=== PATIENT | female | born 1930 | race Caucasian/White ===

== ENCOUNTER 2016-04-17 16:51 | Inpatient (IN) | payer MEDICARE, MEDICAID ==
--- NOTE | 2016-04-17 17:30 | ED Physician Chart ---
Chief Complaint/HPI - Patient Information Date Seen:: 04/17/16 Time Seen:: 17:15 Chief Complaint:: increasing confusion History of Present Illness:: has had increasing confusion for the last 4 years. Has had mild cough for the last one week. No fever, chills, vomiting, diarrhea. Allergies:: Allergies Allergy/AdvReac Type Severity Reaction Status Date / Time No Known Allergies Allergy Verified 04/17/16 17:06 Vitals:: Vital Signs - 8 hr 04/17/16 17:07 Temp 98.2 F HR 87 RR 16 BP 130/74 O2 Sat % 98 Historian:: Family Member Review:: Nurse's Note Reviewed Review of Systems - Review of Systems General/Constitutional: No fever, No chills Skin: No skin lesions Head: No headache Eyes: No loss of vision ENT: No earache Neck: No neck pain Cardio Vascular: No chest pain, No palpitations Pulmonary: No SOB GI: No nausea, No vomiting G/U: No dysuria, No frequency Musculoskeletal: No bone or joint pain Endocrine: No polyuria Psychiatric: Other (dementia) Hematopoietic: No bruising Allergic/Immuno: No urticaria Neurological: No syncope Past Medical History - Past Medical History Past Medical History: Dementia Family History: Other (son has tremors and PUD) Social History: Non Smoker, No Alcohol Surgical History: None Psychiatricy History: Dementia Medication: Reviewed Labs/Radiology/EKG Results - Lab Results Results: Laboratory Results - last 24 hr 04/17/16 04/17/16 17:33 17:33 WBC 9.9 RBC 4.28 Hgb 12.2 Hct 37.2 MCV 86.9 MCH 28.5 MCHC Differential 32.8 RDW 12.2 Plt Count 356 MPV 7.8 Neutrophils % 78.7 Lymphocytes % 13.9 L Monocytes % 5.6 Eosinophils % 1.0 Basophils % 0.8 Sodium 138 Potassium 4.2 Chloride 104 Carbon Dioxide 25.3 Anion Gap 12.9 BUN 50 H Creatinine 1.3 H Est GFR ( Amer) TNP Est GFR (Non-Af Amer) TNP BUN/Creatinine Ratio 38.5 Glucose 108 H Calcium 9.3 - Radiology Results Results: CXR: calcification of aortic arch; otherwise normal; CT head: atrophy and left maxillary sinusitis - EKG Interpretations Rhythm: NSR [place]: normal Rate: 72 ED Septic Shock - . Is Septic Shock (SBP<90, OR Lactate>4 mmol\L) present?: No - <6hrs of presentation: Vital Signs: Vital Signs - 8 hr 04/17/16 17:07 Temp 98.2 F HR 87 RR 16 BP 130/74 O2 Sat % 98 Reassessment (Disposition) - Reassessment Reassessment Condition:: Unchanged - Diagnosis Diagnosis:: dementia; left maxillary sinusitis - Patient Disposition Admitted to:: [facility] Spoke to:: Juan Moctezuma Admitting Medical Physician:: Juan Moctezuma Admitting Psych Physician:: Wesley Brand ED Discharge Plan - Patient Disposition Instructions: Psychosis
[2016-04-17 17:46] LABS: % BASOPHILS 0.8 % (0.0-2.0); % LYMPHOCYTES 13.9 % (20.0-50.0); % MONOCYTES 5.6 % (2.0-10.0); % NEUTROPHILS 78.7 % (40.0-80.0); HEMATOCRIT 37.2 % (35.0-45.0); HEMOGLOBIN 12.2 gm/dL (11.7-16.1); MEAN CELL VOLUME 86.9 fl (81-100); MEAN CORPUSCULAR HEMOGLOBIN 28.5 pg (27.0-31.0); MEAN CORPUSCULAR HGB CONC 32.8 pg (28.0-36.0); MEAN PLATELET VOLUME 7.8 fl; NEUTROPHILE ABSOLUTE 7.7 Th/cmm (1.8-8.0); PLATELET COUNT 356 Th/cmm (150-400); RED BLOOD COUNT 4.28 Mil/cmm (3.80-5.20); RED CELL DISTRIBUTION WIDTH 12.2 % (11.5-20.0); WHITE BLOOD COUNT 9.9 Th/cmm (4.8-10.8)
[2016-04-17 18:00] LABS: ANION GAP 12.9 (7.0-16.0); BUN - UREA NITROGEN 50 mg/dL (7-25); BUN/CREATININE RATIO 38.5; CALCIUM SERUM 9.3 mg/dL (8.6-10.3); CARBON DIOXIDE 25.3 mEq/L (21.0-31.0); CHLORIDE 104 mEq/L (98-107); CREATININE - SERUM 1.3 mg/dL (0.6-1.2); GLUCOSE 108 mg/dL (70-105); POTASSIUM SERUM 4.2 mEq/L (3.5-5.1); SODIUM SERUM 138 mEq/L (136-145)
[2016-04-17 19:49] LABS: % BASOPHILS 0.4 % (0.0-2.0); % EOSINOPHILS 1.4 % (0.0-5.0); % LYMPHOCYTES 18.6 % (20.0-50.0); % MONOCYTES 6.8 % (2.0-10.0); % NEUTROPHILS 72.8 % (40.0-80.0); HEMATOCRIT 35.7 % (35.0-45.0); MEAN CELL VOLUME 87.7 fl (81-100); MEAN CORPUSCULAR HEMOGLOBIN 29.6 pg (27.0-31.0); MEAN CORPUSCULAR HGB CONC 33.8 pg (28.0-36.0); MEAN PLATELET VOLUME 7.7 fl; NEUTROPHILE ABSOLUTE 7.3 Th/cmm (1.8-8.0); PLATELET COUNT 338 Th/cmm (150-400); RED BLOOD COUNT 4.07 Mil/cmm (3.80-5.20); RED CELL DISTRIBUTION WIDTH 11.9 % (11.5-20.0)
[2016-04-17 19:59] VITALS: BP 135/56
[2016-04-17] MEDS ORDERED: Maalox 30 mL Cup PO PRN (19:59)
[2016-04-17] MEDS ORDERED: Magnesium Hydroxide (MOM) 30 mL UDC PO PRN (19:59)
[2016-04-17 20:01] LABS: ANION GAP 8.4 (7.0-16.0); BUN - UREA NITROGEN 53 mg/dL (7-25); BUN/CREATININE RATIO 40.8; CALCIUM SERUM 9.5 mg/dL (8.6-10.3); CARBON DIOXIDE 26.5 mEq/L (21.0-31.0); CHLORIDE 106 mEq/L (98-107); CHOLESTEROL 170 mg/dL (<200); CREATININE - SERUM 1.3 mg/dL (0.6-1.2); GLUCOSE 101 mg/dL (70-105); POTASSIUM SERUM 4.9 mEq/L (3.5-5.1); SODIUM SERUM 136 mEq/L (136-145); TRIGLYCERIDES 90 mg/dL (<150)
[2016-04-17] MEDS ORDERED: Sodium Chloride 0.9% 1,000 ML IV SCH (21:15)
[2016-04-18] MEDS: Multivitamin Tab PO SCH (10:04)
--- NOTE | 2016-04-18 11:22 | Diagnostic Imaging Report ---
CT scan of the brain without intravenous contrast HISTORY: Dementia Total DLP equals 576 CTDI equals 31.0 Axial sections were obtained from the base of the skull to the vertex. The exam demonstrates marked enlargement of the ventricular system along with marked enlargement of cerebral sulci and subarachnoid cisterns reflecting severe generalized cerebral atrophy. Extensive hypodensity seen throughout the supratentorial white matter regions without mass effect. The findings may be associated with chronic small vessel ischemic disease. Bilateral basal ganglia calcification is noted. No acute focal abnormalities. No intracerebral hemorrhage. Again, no mass effect or shift of midline structures. No extra-axial masses or abnormal fluid collections. Mucosal thickening noted about the maxillary sinuses bilaterally. IMPRESSION: 1. No acute abnormalities 2. Relatively severe generalized cerebral atrophy 3. Extensive supratentorial white matter changes that may be associated with chronic small vessel ischemic disease 4. Mucosal thickening about the maxillary sinuses
--- NOTE | 2016-04-18 11:29 | Diagnostic Imaging Report ---
Portable chest x-ray History: Cough Allowing for portable technique the heart size is normal. No focal pulmonary parenchymal processes. No hilar or mediastinal abnormalities. Impression: No acute abnormalities.
[2016-04-18 12:16] LABS: HEP B CORE IGM Negative (Negative); HEP C ANTIBODY <0.1 s/co ratio (0.0-0.9)
--- NOTE | 2016-04-18 22:02 | Psychosocial Evaluation ---
CHIEF COMPLAINT: Agitation and aggressive behavior. HISTORY OF PRESENT ILLNESS: The patient is an 86-year-old female who has been under my care for treatment of dementia and psychosis. The patient was transferred to the hospital from [facility] because of increased agitation and irritability. The patient has been aggressive and angry in the usp and she has not been able to follow staff directions. The patient also has been suspicious and increasingly irritable. The patient also has been aggressive with the staff during helping her with her ADLs. The patient also has not been eating much and person hygiene much deteriorated and the patient has been more confused. PAST PSYCHIATRIC HISTORY: The patient has history of psychosis. PAST MEDICAL HISTORY: The patient has no major medical problems and the patient was cleared medically in the Emergency Room and she only has mild cough. SOCIAL HISTORY: The patient lives in [facility]. No known alcohol or drug use. ALLERGIES: No known allergies. MENTAL STATUS EXAMINATION: The patient appears her stated age. Anxious. Cooperative. Sad affect. Irritable mood. Thought processes are with poverty of speech. The patient did not answer questions regarding hallucinations or delusions, but actively responding to stimuli and staring around the room. The patient did not answer questions regarding suicide or homicide. The patient is alert, but seems to be confused and disoriented to time, place, person and situation. Impaired immediate, recent and remote memories and the patient was not able even to remember her date. Poor insight. Poor judgment. ASSESSMENT: PRIMARY DIAGNOSIS: Unspecified psychosis. SECONDARY DIAGNOSIS: Dementia, [id number], with psychotic features. TREATMENT PLAN: We will adjust the patient's Seroquel. We will monitor psychotropic medications. We will add Aricept in a dose of 5 mg at bedtime. We will work on her confusion and agitation and we will continue to follow up. ESTIMATED LENGTH OF STAY: 7-10 days. THE PATIENT'S STRENGTHS AND WEAKNESSES: The patient strength is not clear at this time except that she seems to be in relatively fair health. Weaknesses are her ineffective coping and poor coping skills. AFTER DISCHARGE PLAN: Outpatient treatment and followup will continue as an outpatient. The patient also will return to [facility]. CRITERIA FOR DISCHARGE: The patient will not be agitated or psychotic and will stabilize psychotropic medications and will establish outpatient treatment plans. JOB# [id number]
--- NOTE | 2016-04-19 00:02 | History & Physical ---
REASON FOR ADMISSION: Psychiatric disorder. HISTORY OF PRESENT ILLNESS: This is an 86-year-old female who was admitted to [facility] for evaluation of underlying confusion and psychiatric disorders by Dr. Brand. Dr. Brand requested medical H and P on this patient. At the time of evaluation, the patient seems very confused, unable to provide any meaningful history. Per nursing staff, no current medical concern was reported. PAST MEDICAL HISTORY: Alzheimer dementia. PAST SURGICAL HISTORY: No pertinent past surgical history. FAMILY HISTORY: Noncontributory. SOCIAL HISTORY: Lives at home with family. No reported alcohol, tobacco or street drug use. CURRENT MEDICATIONS: Tylenol, Maalox, Aricept, Ativan, vitamin C, multivitamin, Seroquel and Ambien. ALLERGIES: No known drug allergy reported. REVIEW OF SYSTEMS: Difficult to obtain and elaborate due to the patient's underlying severe confusion. PHYSICAL EXAMINATION: VITAL SIGNS: Temperature 97.4, pulse 85, respirations 18, blood pressure 153/78, oxygen saturation 97% room air. GENERAL APPEARANCE: The patient does not seem in distress. CARDIOVASCULAR: S1, S2 normal. LUNGS: CTA bilaterally. ABDOMEN: Soft, nontender, nondistended. NEUROLOGIC: The patient is awake, but confused. Moves all extremities. No focal deficits. EXTREMITIES: No edema. AVAILABLE LABORATORY DATA: WBC is 10.0, hemoglobin 12.0, hematocrit 35.7, platelets count is 338. Sodium 133, potassium 4.9, BUN 53, creatinine 1.3, glucose 101, calcium 9.5, ____ 170, LDL 91, HDL ____, triglyceride 2.09. Hepatitis panel negative. Head CT, no acute abnormalities, there is severe generalized cerebral atrophy noted. Chest x-ray, no acute abnormality noted. ASSESSMENT: 1. Confusion. 2. Alzheimer dementia. 3. Psychiatric disorder. 4. Acute renal insufficiency. 5. Hypertension. 6. Generalized debility. PLAN: Psych evaluation and management per psychiatrist. The patient will be encouraged to drink more oral liquids. Blood pressure will be monitored. Fall precautions and aspiration precautions will be given. The patient's condition and plan of care discussed with nursing staff. Thank you, Dr. Brand, for allowing me to participate in the care of this patient. [facility]# [id number]
[2016-04-19] MEDS: Multivitamin Tab PO SCH (09:41)
--- NOTE | 2016-04-20 01:22 | Progress Notes ---
SUBJECTIVE: Chart reviewed and the patient interviewed. Also discussed the patient's condition with the staff and reviewed records and labs. The patient continued to be confused and she is still in irritable mood. The patient was walking around, rambling in Yoruba language and having a bag around her neck thinking that it is the picture of her son. The patient also seems to be preoccupied and she is confused and disoriented. According to the staff that was helping me with the translation, the patient seems to be extremely delusional and she is not knowing what she was talking about and at times she is talking about her father, but not in a clear way what she is exactly talking about. ASSESSMENT: The patient is still psychotic and confused and she still needs close monitoring. TREATMENT PLAN: We will continue to monitor her behavior and her condition closely. Also, we will increase Seroquel to 12.5 mg in the morning and 150 mg at bedtime. Also, continue to work on her irritability and her agitation and we will continue to follow up. JOB# [id number]
[2016-04-20] MEDS: Multivitamin Tab PO SCH (12:52)
--- NOTE | 2016-04-21 06:22 | Progress Notes ---
SUBJECTIVE: Chart reviewed and the patient interviewed. Also discussed the patient's condition with the staff and reviewed records and labs. The patient continues pacing around the unit in a confused state and she still seems to be preoccupied and talking to herself. The patient also is still rambling and staff could not understand what she is stating, although some of the staff speaks Nepali, but still did not understand what she is talking about. The patient also is still easily agitated and easily irritable. She also gets aggressive with the staff when they try to redirect her. She seems to be confused and disoriented and preoccupied. Also during interview, the patient is disheveled and rambling and restless and could not stand still and always pacing and on the move. ASSESSMENT: The patient is still psychotic and aggressive and can be dangerous to others. TREATMENT PLAN: Although I increased Seroquel yesterday, yet the patient is refusing to take medications for no apparent reason. We will continue to convince the patient to take her medications and work on her compliance with taking the medications. Also, we will continue to work on her anger and irritability and poor impulse control. JOB# [id number]
[2016-04-21] MEDS: Multivitamin Tab PO SCH (09:53)
[2016-04-22] MEDS: Multivitamin Tab PO SCH (09:43)
--- NOTE | 2016-04-23 02:55 | Progress Notes ---
SUBJECTIVE: Chart reviewed and the patient interviewed. Also discussed the patient's condition with the staff and reviewed records and labs. The patient is still forgetful and is still anxious and in irritable mood. The patient also is still suspicious and is still paranoid. She also is still in angry mood with severe mood swings. The patient is also walking around, mumbling in Czech words, difficult to understand and seems to be preoccupied. Otherwise, the patient is more cooperative with treatment, but she still has periods of anger. ASSESSMENT: The patient is still psychotic. TREATMENT PLAN: We will continue monitoring her behavior and her condition closely. Also, continue to work on her adjusting psychotropic medications and followup. JOB# [id number]
--- NOTE | 2016-04-23 04:13 | Progress Notes ---
SUBJECTIVE: Chart reviewed and the patient interviewed. Also discussed the patient's condition with the staff and reviewed records and labs. The patient is still confused and is still wandering around the unit aimlessly, mumbling and rambling in [place] language. She also still needs lots of redirections. The patient also still has episodes of irritability and agitation especially when staff tries to redirect her. The patient also is trying to get out of the door of the unit and had episodes of pounding with her fist on the door. Otherwise, the patient is compliant with taking her medications with no side effects of medications. ASSESSMENT: The patient is still psychotic. TREATMENT PLAN: We will continue monitoring her behavior and her condition closely. Also, continue to adjust the dose of Seroquel. Also, working on behavioral modifications. JOB# [id number]
[2016-04-23] MEDS: Multivitamin Tab PO SCH (08:06)
--- NOTE | 2016-04-23 23:33 | Progress Notes ---
SUBJECTIVE: Chart reviewed and the patient interviewed. Also discussed the patient's condition with the staff and reviewed records and labs. The patient is still confused and she is still in angry and in irritable mood. The patient also is still rambling and her thought processes are circumstantial and tangential with flight of ideas. According to staff, she speaks Croatian. The patient also is still mumbling. Also, personal hygiene is still poor. The patient also seems to be confused and wandering around the unit and entering other patients' rooms in a confused state and gets agitated when staff tries redirect her. ASSESSMENT: The patient is still confused and is paranoid. TREATMENT PLAN: We will monitor her behavior and her condition closely. Also, we will increase Seroquel to 25 mg in the morning and 150 mg at bedtime and we will continue to monitor her behavior and her condition closely because of her agitation and irritability. Also, working with piano case maker in regard to discharge plans and placement issues. JOB# [id number]
[2016-04-24] MEDS: Multivitamin Tab PO SCH ×2 (08:51→08:57)
--- NOTE | 2016-04-25 01:02 | Progress Notes ---
SUBJECTIVE: Chart reviewed and the patient interviewed. Also, discussed the patient's condition with the staff and reviewed records and labs. The patient is still confused as is still rambling in the Venezuelan language while pacing up and down the unit. The patient also still needs redirection and she gets angry and agitated when staff tries to redirect her. She also is still talking to herself and mumbling in Venezuelan with difficulty to understand. The patient gets aggressive with the staff. Also, personal hygiene is still poor. ASSESSMENT: The patient is still psychotic. TREATMENT PLAN: We will continue monitoring her behavior and her condition closely. Also, continue to monitor psychotropic medications and working on placement issue and discharge plans. JOB# [id number]
[2016-04-25] MEDS: Multivitamin Tab PO SCH (08:33)
--- NOTE | 2016-04-26 01:44 | Progress Notes ---
SUBJECTIVE: Chart was reviewed, and the patient interviewed. Also, discussed the patient's condition with the staff and reviewed records and labs. The patient is still suspicious and is still paranoid. The patient also is still confused, and she is still wandering around the unit in a confused state. The patient also is still mumbling in Sami language in words that are difficult to understand even for staff who speaks Sami. The patient also is still agitated and she is still confused. Also, personal hygiene is still poor. During interview, the patient is disheveled and she is preoccupied. She also is paranoid and she is having difficulty following any of my directions. ASSESSMENT: The patient is still psychotic. TREATMENT PLAN: We will continue monitoring her condition and her medications closely. Also, the patient has been refusing to take medications, and we will change medicine to Zyprexa Zydis. Hopefully, the patient will be more compliant with taking medications. Also, we will work on her irritability and her anger. No new labs available for review. JOB# [id number]
[2016-04-26] MEDS: Multivitamin Tab PO SCH (09:27)
--- NOTE | 2016-04-27 05:19 | Progress Notes ---
Covering for Dr. Brand. Case was discussed with staff of the patient, reviewed records. This is an 86-year-old female who was admitted on 04/17/2016. The patient has a history of dementia and psychosis. Has been treated by Dr. Brand, transferred from [facility] because of increased agitation, irritability, aggressive and angry in the longterm, unable to follow staff direction, suspicious and irritable. The patient continues to have poor insight. Continues to be irritable, continues to be easily agitated. Unable to make safe plan for self-care. She is compliant with the medication with no side effects. She is on Zyprexa 5 mg twice a day, Aricept 5 mg at bedtime. No side effects with the medication, no sedation, no nausea and we will continue to work with the patient in group therapy, milieu therapy and adjust medication as needed. JOB# [id number]
[2016-04-27] MEDS: Multivitamin Tab PO SCH (09:45)
--- NOTE | 2016-04-28 04:40 | Progress Notes ---
Case discussed with staff of the patient and reviewed records. Covering for Dr. Brand. The patient is reported to be somewhat sedated today, staying in bed; however, she continues to be paranoid, suspicious, sometimes wandering around the unit in a confused state. Continues to mumble to herself in Indonesian. Continues to be unpredictable and impulsive, looking disheveled. She is compliant with the medication with no side effects, no sedation, no nausea, no extrapyramidal symptoms. She is on Zyprexa 5 mg twice a day and will continue with patient in group therapy, milieu therapy, adjust the medication as needed. JOB# [id number]
[2016-04-28] MEDS: Multivitamin Tab PO SCH (10:03)
[2016-04-28] MEDS: OLANZapine 5 mg Oral Disintegrating Tab PO SCH ×2 (17:04→19:47)
--- NOTE | 2016-04-29 03:05 | Progress Notes ---
Case was discussed with staff of the patient, reviewed records. The patient has been isolating herself in bed. Continues to be unpredictable, impulsive, needing redirection. Continues to have poor insight. Unable to make safe plan for her self-care. Continues to be paranoid, suspicious at times, mumbling to herself. She has been on the Zyprexa 5 mg twice a day with no side effects, no sedation, no nausea, no extrapyramidal symptoms. We will continue to work with the patient in group therapy, milieu therapy, adjust the medication as needed. JOB# [id number]
--- NOTE | 2016-04-30 01:23 | Progress Notes ---
Covering for Dr. Brand. Case discussed with staff of the patient. The patient is reported____ by the staff to be staying in bed most of the time and that in the past 2 days, she did not take her medications; I was only told about it today, so the patient was encouraged to take her medication. The patient would not give me any reason why she is not taking her medication. She is demented, confused. I would be increasing her Aricept to 10 mg at bedtime and the patient does not tell me any reason why she would not take her medication, she kept quiet and I listed all the side effects of the medication she takes. She has very poor insight, unpredictable, impulsive and we will continue to work with the patient in group therapy, milieu therapy, adjust medication as needed. JOB# [id number]
[2016-04-30] MEDS: OLANZapine 5 mg Oral Disintegrating Tab PO SCH ×2 (13:18→18:09)
[2016-04-30] MEDS: Multivitamin Tab PO SCH (13:18)
--- NOTE | 2016-05-01 02:21 | Progress Notes ---
SUBJECTIVE: The patient was seen, chart reviewed, discussed with staff. The patient is not interactive with me on interview, not talking, noted by staff to initially be pacing a lot, but _at times___ refusing medications. Sleeping most of the time. Okay p.o. intake. The patient is not at all interactive with me. The patient is with a history of dementia. The patient was seen by Dr. Hoang over the past few days, originally brought into the hospital, increased agitation, irritability, aggressive behaviors, unable to be cared for at a lower level of care. Unable to utilize basic food, clothing and correction due to the severity of her symptoms and dementia. ASSESSMENT: As noted, the patient remains confused, refusing medications, not talking, severely withdrawn, unable to care for basic needs. PLAN: Continue to monitor. Continue to encourage medication compliance. The patient may need a __riese__ petition. JOB# [id number]
[2016-05-01] MEDS: OLANZapine 5 mg Oral Disintegrating Tab PO SCH ×2 (09:56→17:54)
[2016-05-01] MEDS: Multivitamin Tab PO SCH (09:56)
[2016-05-02] MEDS: OLANZapine 5 mg Oral Disintegrating Tab PO SCH ×3 (08:44→18:01)
[2016-05-02] MEDS: Multivitamin Tab PO SCH (08:45)
--- NOTE | 2016-05-02 08:49 | Progress Notes ---
SUBJECTIVE: Chart was reviewed and the patient interviewed. Also, discussed the patient's condition with the staff and reviewed records and labs. The patient is still depressed and confused. The patient also has been staying in her room most of the time and has minimal interaction with others. The patient also has been not answering questions and it seems that her appetite decreased than before. The patient also is still suspicious and still paranoid and uncooperative with her treatment. She is still rambling in Kinyarwanda language, difficulty understanding her what she is talking about. ASSESSMENT: The patient is still psychotic. TREATMENT PLAN: We will continue monitoring her behavior and her condition closely. Also, we will continue to work on her irritability and her agitation. Also, encouraged the patient to interact. Also, we will work on her agitation and irritability. Also, we will decrease Zyprexa to 2.5 mg every day. Hopefully, that might help with the patient to be more energetic. JOB# [id number]
--- NOTE | 2016-05-02 19:16 | Discharge Summary ---
AGE: 86 SEX: Female. PHYSICIAN: Dr. Brand FINAL DIAGNOSES/PRIMARY DIAGNOSIS: Unspecified psychosis. REASON FOR HOSPITALIZATION: The patient was admitted to the hospital because of agitation and irritability. HOSPITAL COURSE: The patient continued to be anxious and in irritable mood. The patient also was easily agitated. The patient continued wandering around the unit in a confused state. She also was easily agitated, especially when staff tried to redirect her and help her with her ADLs. The patient was given Zyprexa and the dose adjusted to 2.5 mg twice a day. Gradually, the patient's affect was brighter. The patient was less agitated and less irritable. It was easier to redirect her. The patient was returned back to [facility]. Physical exam of the patient showed no major medical problems. AFTER DISCHARGE PLANS: The patient discharged from the hospital and returned to [facility] convalescent with plans for outpatient treatment and follow up there. LABORATORY DATA: No major abnormal labs while in the hospital. EXPECTED OUTCOME AFTER DISCHARGE: Fair, if the patient continues to take her psychotropic medications and follow up with treatment plans. JOB# [id number]
== END 2016-05-02 18:00 | DRG 885 ==
LOC: ER 16:51 → GERO 19:46
PROVIDERS: ADMIT Psychiatry & Neurology Psychiatry; ATTEND Psychiatry & Neurology Psychiatry
DX: F29 Unspecified psychosis not due to a substance or known physiological condition (principal); F02.80 Dementia in other diseases classified elsewhere, unspecified severity, without behavioral disturbance, psychotic disturbance, mood disturbance, and anxiety; G30.9 Alzheimer's disease, unspecified; J32.0 Chronic maxillary sinusitis; I10 Essential (primary) hypertension; N28.9 Disorder of kidney and ureter, unspecified; R53.81 Other malaise; Z87.11 Personal history of peptic ulcer disease
CPT/HCPCS: 36415-UA; 70450-TC; 71010-TC; 80048-TC; 80061-TC; 80074-90; 84443-TC; 85025-TC; 86592-TC; 93005; Z7610

== ENCOUNTER 2016-05-26 22:10 | Emergency (ER) | payer MEDICARE, MEDICAID ==
--- NOTE | 2016-05-26 22:15 | ED Physician Chart ---
Chief Complaint/HPI - Patient Information Date Seen:: 05/26/16 Time Seen:: 22:15 Chief Complaint:: agitation History of Present Illness:: 86-year-old female with underlying dementia and psychosis, brought in by paramedics with acute, worsening, moderate to severe, agitation started this morning. Has associated uncooperative behavior. History limited as patient has underlying dementia and cannot provide a reliable history and has uncooperative behavior History provided by EMS and EMS run sheet Allergies:: Allergies Allergy/AdvReac Type Severity Reaction Status Date / Time No Known Allergies Allergy Verified 04/17/16 17:06 Historian:: EMS Review:: Nurse's Note Reviewed, EMS run form Reviewed, Transfer documents Reviewed Review of Systems - Review of Systems Other: Complete system review otherwise unremarkable except as noted in HPI. Past Medical History - Past Medical History Past Medical History: HTN, Other (chronic kidney disease, hypertension) Family History: None Social History: Non Smoker, No Alcohol, No Drug Use, Care Facility Surgical History: None Psychiatricy History: Dementia, Other (psychosis) Medication: Reviewed Family Medical History - Family Member Mother History Unknown: Yes Maternal History Unknown: Yes Physical Exam - Physical Examination Other:: INITIAL VITAL SIGNS: Reviewed by me GENERAL: Alert and interactive but demented but cooperative. No acute distress HEAD: Head is normocephalic and atraumatic EYES: EOMI. . No scleral icterus. No conjunctival injection ENT: Moist mucous membranes. NECK: Supple. No masses. Full range of motion RESPIRATORY: No tachypnea. Clear breath sounds bilaterally. No wheezing, rales, or rhonchi CV: Regular rate and rhythm. No murmurs, rubs, or gallops ABDOMEN: Soft, non-distended, non-tender. No guarding. No rebound. No masses. EXTREMITIES: No deformity. No cyanosis. No edema. SKIN: Warm and dry. No obvious rashes. NEUROLOGIC: Alert and oriented. Face is symmetric. Speech is normal. Moves all extremities equally. Motor and sensory distally intact. Labs/Radiology/EKG Results - Lab Results Results: Lab Results 05/26/16 05/26/16 05/26/16 Range/Units 22:25 22:25 22:25 WBC 8.8 (4.8-10.8) Th/cmm RBC 3.80 (3.80-5.20) Mil/cmm Hgb 11.1 L (11.7-16.1) gm/dL Hct 33.0 L (35.0-45.0) % MCV 86.8 (81-100) fl MCH 29.2 (27.0-31.0) pg MCHC Differential 33.6 (28.0-36.0) pg RDW 14.2 (11.5-20.0) % Plt Count 242 D (150-400) Th/cmm MPV 8.3 fl Neutrophils % 75.4 (40.0-80.0) % Lymphocytes % 18.1 L (20.0-50.0) % Monocytes % 5.2 (2.0-10.0) % Eosinophils % 0.7 (0.0-5.0) % Basophils % 0.6 (0.0-2.0) % Sodium 138 (136-145) mEq/L Potassium 4.6 (3.5-5.1) mEq/L Chloride 106 (98-107) mEq/L Carbon Dioxide 23.9 (21.0-31.0) mEq/L Anion Gap 12.7 (7.0-16.0) BUN 39 H (7-25) mg/dL Creatinine 1.3 H (0.6-1.2) mg/dL Est GFR ( Amer) TNP Est GFR (Non-Af Amer) TNP BUN/Creatinine Ratio 30.0 Glucose 105 (70-105) mg/dL Calcium 8.8 (8.6-10.3) mg/dL Total Bilirubin 0.3 (0.3-1.0) mg/dL AST 13 (13-39) U/L ALT 9 (7-52) U/L Alkaline Phosphatase 75 (34-104) U/L Total Protein 6.5 (6.0-8.3) gm/dL Albumin 3.6 L (3.7-5.3) gm/dL Globulin 2.9 gm/dL Albumin/Globulin Ratio 1.2 (1.0-1.8) Lipase 61 (11-82) U/L TSH 2.42 (0.34-5.60) uIU/ml Urine Source Urine Color Urine Clarity (CLEAR) Urine pH Ur Specific [place] (1.005-1.030) Urine Protein (NEGATIVE) mg/dL Urine Glucose (UA) (NEGATIVE) mg/dL Urine Ketones (NEGATIVE) mg/dL Urine Blood (NEGATIVE) Urine Nitrate (NEGATIVE) Urine Bilirubin (NEGATIVE) Urine Urobilinogen (0.2 - 1.0) E.U./dL Ur Leukocyte Esterase (NEGATIVE) Urine RBC (0-5) /hpf Urine WBC (0-5) /hpf Ur Epithelial Cells (FEW) /lpf Urine Bacteria (NONE SEEN) /hpf Urine Opiates Screen (NEGATIVE) Ur Barbiturates Screen (NEGATIVE) Ur Phencyclidine Scrn (NEGATIVE) Amphetamines Screen (NEGATIVE) U Methamphetamines Scrn (NEGATIVE) U Benzodiazepines Scrn (NEGATIVE) U Cocaine Metab Screen (NEGATIVE) U Cannabinoids Screen (NEGATIVE) Ethyl Alcohol < 10 (0-10) mg/dL 05/26/16 05/26/16 Range/Units 23:50 23:50 WBC (4.8-10.8) Th/cmm RBC (3.80-5.20) Mil/cmm Hgb (11.7-16.1) gm/dL Hct (35.0-45.0) % MCV (81-100) fl MCH (27.0-31.0) pg MCHC Differential (28.0-36.0) pg RDW (11.5-20.0) % Plt Count (150-400) Th/cmm MPV fl Neutrophils % (40.0-80.0) % Lymphocytes % (20.0-50.0) % Monocytes % (2.0-10.0) % Eosinophils % (0.0-5.0) % Basophils % (0.0-2.0) % Sodium (136-145) mEq/L Potassium (3.5-5.1) mEq/L Chloride (98-107) mEq/L Carbon Dioxide (21.0-31.0) mEq/L Anion Gap (7.0-16.0) BUN (7-25) mg/dL Creatinine (0.6-1.2) mg/dL Est GFR ( Amer) Est GFR (Non-Af Amer) BUN/Creatinine Ratio Glucose (70-105) mg/dL Calcium (8.6-10.3) mg/dL Total Bilirubin (0.3-1.0) mg/dL AST (13-39) U/L ALT (7-52) U/L Alkaline Phosphatase (34-104) U/L Total Protein (6.0-8.3) gm/dL Albumin (3.7-5.3) gm/dL Globulin gm/dL Albumin/Globulin Ratio (1.0-1.8) Lipase (11-82) U/L TSH (0.34-5.60) uIU/ml Urine Source CATH Urine Color YELLOW Urine Clarity CLEAR (CLEAR) Urine pH 7.0 Ur Specific [place] 1.015 (1.005-1.030) Urine Protein NEGATIVE (NEGATIVE) mg/dL Urine Glucose (UA) NEGATIVE (NEGATIVE) mg/dL Urine Ketones NEGATIVE (NEGATIVE) mg/dL Urine Blood NEGATIVE (NEGATIVE) Urine Nitrate NEGATIVE (NEGATIVE) Urine Bilirubin NEGATIVE (NEGATIVE) Urine Urobilinogen 0.2 (0.2 - 1.0) E.U./dL Ur Leukocyte Esterase NEGATIVE (NEGATIVE) Urine RBC 0-2 (0-5) /hpf Urine WBC 0-2 (0-5) /hpf Ur Epithelial Cells OCCASIONAL (FEW) /lpf Urine Bacteria OCCASIONAL (NONE SEEN) /hpf Urine Opiates Screen NEGATIVE (NEGATIVE) Ur Barbiturates Screen NEGATIVE (NEGATIVE) Ur Phencyclidine Scrn NEGATIVE (NEGATIVE) Amphetamines Screen NEGATIVE (NEGATIVE) U Methamphetamines Scrn NEGATIVE (NEGATIVE) U Benzodiazepines Scrn POSITIVE H (NEGATIVE) U Cocaine Metab Screen NEGATIVE (NEGATIVE) U Cannabinoids Screen NEGATIVE (NEGATIVE) Ethyl Alcohol (0-10) mg/dL ED Septic Shock - . Is Septic Shock (SBP<90, OR Lactate>4 mmol\L) present?: No Reassessment (Disposition) - Reassessment Reassessment:: Patient was somewhat agitated on arrival. We're unable to get vital signs and blood work. She did receive 2 mg of intramuscular Ativan. She became much more relaxed but remained alert and oriented. Patient is medically cleared. There is no apparent infective source or any other acute lab abnormalities. Patient does have underlying hypertension and CK D. Consequently her creatinine is elevated at 1.3. I discussed all of the findings with the patient's primary care physician Dr. Moctezuma who would like us to send the patient back to her care facility. Reassessment Condition:: Improved - Diagnosis Diagnosis:: Medical screening examination Hypertension Dementia Agitation - Aftercare/Follow up Instructions Aftercare/Follow-Up Instructions:: Counseled pt regarding lab results/diagnosis & need follow up, Refer to Discharge Instructions - Patient Disposition Discharge/Transfer:: Home Discussion with Medical Provider:: Spoke to Dr. Moctezuma, disposition back to nursing home facility. Per Dr. Moctezuma Spoke to:: Juan Moctezuma Time:: 00:50 ED Discharge Plan - Patient Disposition Instructions: Dementia, [id number] Additional Instructions: follow up with primary medical doctor PATSY
[2016-05-26 22:33] LABS: % BASOPHILS 0.6 % (0.0-2.0); % EOSINOPHILS 0.7 % (0.0-5.0); % LYMPHOCYTES 18.1 % (20.0-50.0); % MONOCYTES 5.2 % (2.0-10.0); % NEUTROPHILS 75.4 % (40.0-80.0); HEMOGLOBIN 11.1 gm/dL (11.7-16.1); MEAN CELL VOLUME 86.8 fl (81-100); MEAN CORPUSCULAR HEMOGLOBIN 29.2 pg (27.0-31.0); MEAN CORPUSCULAR HGB CONC 33.6 pg (28.0-36.0); MEAN PLATELET VOLUME 8.3 fl; NEUTROPHILE ABSOLUTE 6.5 Th/cmm (1.8-8.0); RED CELL DISTRIBUTION WIDTH 14.2 % (11.5-20.0); WHITE BLOOD COUNT 8.8 Th/cmm (4.8-10.8)
[2016-05-26 22:34] LABS: PLATELET COUNT 242 Th/cmm (150-400)
[2016-05-26 22:48] LABS: ALB/GLOB RATIO 1.2 (1.0-1.8); ALKALINE PHOSPHATASE 75 U/L (34-104); ANION GAP 12.7 (7.0-16.0); BILIRUBIN,TOTAL 0.3 mg/dL (0.3-1.0); BUN - UREA NITROGEN 39 mg/dL (7-25); CALCIUM SERUM 8.8 mg/dL (8.6-10.3); CARBON DIOXIDE 23.9 mEq/L (21.0-31.0); CHLORIDE 106 mEq/L (98-107); CREATININE - SERUM 1.3 mg/dL (0.6-1.2); GLUCOSE 105 mg/dL (70-105); LIPASE 61 U/L (11-82); POTASSIUM SERUM 4.6 mEq/L (3.5-5.1); SGOT 13 U/L (13-39); SGPT/ALT 9 U/L (7-52); SODIUM SERUM 138 mEq/L (136-145)
[2016-05-27 00:06] LABS: URINE BILIRUBIN NEGATIVE (NEGATIVE); URINE BLOOD NEGATIVE (NEGATIVE); URINE COLOR YELLOW; URINE GLUCOSE (UA) NEGATIVE (NEGATIVE); URINE KETONE NEGATIVE (NEGATIVE); URINE PROTEIN NEGATIVE (NEGATIVE); URINE UROBILINOGEN 0.2 E.U./dL (0.2 - 1.0)
[2016-05-27 00:07] LABS: URINE BACTERIA OCCASIONAL /hpf (NONE SEEN); URINE EPITHELIAL CELLS OCCASIONAL /lpf (FEW); URINE RBC 0-2 /hpf (0-5); URINE WBC 0-2 /hpf (0-5)
[2016-05-27 00:11] LABS: AMPHETAMINE URINE NEGATIVE (NEGATIVE); BARBITURATES URINE NEGATIVE (NEGATIVE)
== END 2016-05-27 00:55 | disposition home or self-care (01) ==
LOC: ER 22:10
DX: F03.90 Unspecified dementia, unspecified severity, without behavioral disturbance, psychotic disturbance, mood disturbance, and anxiety (principal); I12.9 Hypertensive chronic kidney disease with stage 1 through stage 4 chronic kidney disease, or unspecified chronic kidney disease; R45.1 Restlessness and agitation; N18.9 Chronic kidney disease, unspecified
CPT/HCPCS: 99284; 96372; 36415; 80307; 84443; 86592; 85025; 81001; 80320; 83690; 80053; J2060; 81003-TC; Z7502; Z7610